=== PATIENT | female | born 1980 | race Caucasian/White ===

== ENCOUNTER → 2018-11-03 | Outpatient (CLI) | payer BC ==
--- NOTE | 2018-11-03 11:52 | US ---
EXAMINATION TYPE: US thyroid st tissue head/neck DATE OF EXAM: 11/03/2018 COMPARISON: 10/20/2014 CLINICAL HISTORY: E04.9 Other Enlarged, E004.1 Thyroid Nodule. GLAND SIZE: Right Lobe: 5.0 x 1.3 x 1.4 cm Overall Parenchyma: homogenous Left Lobe: 4.4 x 1.2 x 1.0 cm Overall Parenchyma: homogeneous Isthmus Thickness: 0.2 cm NODULES RIGHT: # of nodules measured on right: 3 1. 0.8 X 0.8 x 0.6 cm hypoechoic solid nodule at the upper pole with well-defined margins. This no dule is wider than tall and shows intranodular vascularity. Prior size: 0.7 x 0.6 x 0.7 cm 2. 0.3 X 0.2 x 0.3 cm hypoechoic mixed nodule at the mid pole with well-defined margins. This nodul e is taller than wide and shows intranodular vascularity. 3. 0.4 X 0.4 x 0.2 cm hypoechoic mixed nodule at the lower pole with well-defined margins. This nod ule is wider than tall and shows no intranodular vascularity. LEFT: # of nodules measured on left: 2 largest of multiple 1. 0.9 X 0.7 x 0.3 cm hypoechoic solid nodule at the upper pole with well-defined margins. This no dule is wider than tall and shows intranodular vascularity. Prior size: 0.8 x 0.3 x 0.7 cm 2. 0.5 X 0.4 x 0.3 cm hypoechoic mixed nodule at the lower pole with well-defined margins. This nod ule is wider than tall and shows no intranodular vascularity. ISTHMUS: # of nodules measured in the isthmus: 0 Bilateral neck scanned: no evidence of lymphadenopathy. Radiologist: please request faxed results to Liam Quesada M.D. and office phone # [phone] per [facility]. IMPRESSION: 1. Multiple subcentimeter nodules present bilaterally. Enlarging nodules or nodules larger than 1 cm not evident on the current exam.
== END ==
LOC: RADUSWWP 08:55
PROVIDERS: ATTEND Obstetrics & Gynecology
DX: E04.2 Nontoxic multinodular goiter (principal)
CPT/HCPCS: 76536

== ENCOUNTER → 2022-09-12 | Outpatient (CLI) | payer BC ==
[2022-09-12 17:05] LABS: African American GFR (CKD) 106.8 (60.0-200.0); Albumin 4.6 g/dL (3.8-4.9); Albumin/Globulin Ratio 2.01 (1.60-3.17); BUN/Creat Ratio 12.55 Ratio (12.00-20.00); Blood Urea Nitrogen 9.9 mg/dL (9.0-27.0); Calcium 9.5 mg/dL (8.7-10.3); Carbon Dioxide 27.4 mmol/L (20.0-27.5); Follicle Stimulating Hormone 5.2 mIU/mL; Globulin 2.3 g/dL (1.6-3.3); Luteinizing Hormone 11.5 mIU/mL; Non-African American GFR(CKD) 92.1 (60.0-200.0); T4, Free (Free Thyroxine) 1.42 ng/dL (0.800-1.800); Total Bilirubin 0.3 mg/dL (0.30-1.20); Total Protein 6.9 g/dL (6.2-8.2)
== END | disposition home or self-care (01) ==
LOC: LABWHC1 10:54
PROVIDERS: ATTEND Internal Medicine Endocrinology, Diabetes & Metabolism
DX: E03.9 Hypothyroidism, unspecified (principal); E04.2 Nontoxic multinodular goiter
CPT/HCPCS: 36415; 80053; 82670; 83001; 83002; 84439; 84443; 86376